=== PATIENT | female | born 1960 | race Two or more races ===

== ENCOUNTER 2017-04-18 12:21 | Day surgery (SDC) | payer OTHER ==
[2017-04-18] MEDS ORDERED: PROPOFOL 20 ML (16:03)
[2017-04-18] MEDS ORDERED: FENTAnyl 50 MCG/ML VIAL (16:03)
== END 2017-04-18 19:59 | disposition home or self-care (01) ==
LOC: GIL 12:21
DX: D12.5 Benign neoplasm of sigmoid colon (principal); K64.8 Other hemorrhoids; Z85.3 Personal history of malignant neoplasm of breast; E66.01 Morbid (severe) obesity due to excess calories; Z68.41 Body mass index [BMI] 40.0-44.9, adult
CPT/HCPCS: 45380; 88305